=== PATIENT | male | born 1990 | race Two or more races ===

== ENCOUNTER → 2023-03-21 | Emergency (ER) | payer SELFPAY ==
[~2023-03-21] VITALS: Ht 177.8 cm; Wt 75.0 kg
[~2023-03-21] MED LIST: CLIN150C8 PO; CLINDAMYCIN HCL 150 MG CAP PO ONE; DexAMETHasone SOD PHOS 10MG/1ML VIAL INJ IM ONE; OXYCODONE W/ ACETAMINOPHEN 5/325MG TABLET PO ONE; PERCOT PO; PRED20TA2 PO
[2023-03-21 02:48] LABS: Basophils # (auto) 0 10 ^3/uL (0-0.2); Basophils % (auto) 0.4 % (0.0-2.0); Eosinophils # (auto) 0 10 ^3/uL (0-0.8); Eosinophils % (auto) 0.4 % (0.0-7.0); Hematocrit 37.4 % (41.0-53.0); Hemoglobin 12.8 g/dL (13.5-17.5); Lymphocytes # (auto) 1.3 10 ^3/uL (0.4-5.4); Lymphocytes % (auto) 11.7 % (10.0-50.0); Mean Corpuscular Hemoglobin 30.2 pg (28.0-32.0); Mean Corpuscular Hgb Conc. 34.1 g/dL (32.0-36.0); Mean Corpuscular Volume 88.7 fL (80.0-100.0); Monocytes % (auto) 9.4 % (0.0-12.0); Neutrophils # (auto) 8.6 10 ^3/uL (1.6-8.6); Neutrophils % (auto) 78.1 % (37.0-80.0); Nucleated Red Blood Cells % 0.1 %; Red Blood Cells 4.22 10^6/uL (4.5-5.90); Red Cell Distribution Width 13.3 % (11.8-14.3)
[2023-03-21 03:18] LABS: Albumin 3.6 g/dL (3.4-5.0); Calcium 8.9 mg/dL (8.5-10.1); Potassium 3.6 mmol/L (3.5-5.1)
[2023-03-21 03:20] LABS: BUN/Creatinine Ratio 20.3 (10.0-20.0)
[2023-03-21 03:23] LABS: Bilirubin, Total 0.3 mg/dL (0.2-1.0); Total Protein 7.2 g/dL (6.4-8.2)
[2023-03-21 11:51] VITALS: BP 114/68
== END | disposition home or self-care (01) ==
LOC: ER 01:37
DX: K04.7 Periapical abscess without sinus (principal)
CPT/HCPCS: 36415; 70487; 80053; 85025; 96372; 99285; J1100